=== PATIENT | female | born 1985 | race African-American/Black ===

== ENCOUNTER 2018-12-27 16:10 | Emergency (ER) | payer SELFPAY ==
[~2018-12-27] VITALS: Ht 152.4 cm; Wt 100.0 kg
[~2018-12-27 16:10] MED LIST: BCP TD; LORTAB 5/500 501 TAB PO; NAPROSYN500 MG PO; NORCO 325 MG-7.1 TAB PO
[2018-12-27 16:26] VITALS: BP 167/92; TEMP 97.2
[2018-12-27] MEDS ORDERED: VOLTAREN 75 DR75 MG PO (17:30)
[2018-12-27] MEDS ORDERED: FLEXERIL 1010 MG/TAB PO (17:30)
[2018-12-27 17:48] VITALS: PULSE 88
== END 2018-12-27 17:48 | disposition home or self-care (01) ==
LOC: COL.ER 16:10
DX: S46.912A Strain of unspecified muscle, fascia and tendon at shoulder and upper arm level, left arm, initial encounter (principal); V43.52XA Car driver injured in collision with other type car in traffic accident, initial encounter